=== PATIENT | female | born 1930 | race Caucasian/White ===

== ENCOUNTER → 2016-07-19 | Outpatient (CLI) | payer BC ==
[~2016-07-19] MED LIST: CLTP PO; DYZ PO; EVS60 PO; FSMD/70 PO; HRBLS PO; MULT-506 PO; POTA-327 PO; [UNRECOGNIZED DRUG - OTHER] PO
--- NOTE | 2016-07-20 10:58 | MAMMOGRAPHY REPORT ---
BILATERAL DIGITAL SCREENING MAMMOGRAM WITH CAD: 07/19/2016 CLINICAL HISTORY: Routine screening. Patient has no complaints. TECHNIQUE: Bilateral CC and MLO views were obtained. Current study was also evaluated with a Comput er Aided Detection (CAD) system. COMPARISON: Comparison is made to exams dated: 07/17/2015 mammogram, 06/22/2013 mammogram, 04/19/2011 ultrasound, 12/22/2011 mammogram, 06/19/2012 mammogram, and 07/15/2014 mammogram - [facility]. BREAST COMPOSITION: There are scattered areas of fibroglandular density in both breasts. FINDINGS: The parenchymal pattern is similar to prior exams. No developing mass, architectural dis tortion or cluster of suspicious microcalcifications is seen in either breast. IMPRESSION: ACR BI-RADS CATEGORY 2: BENIGN There is no mammographic evidence of malignancy. A 1 year screening mammogram is recommended. The p atient will receive written notification of the results. Approximately 10% of breast cancers are not detected with mammography. A negative mammographic repor t should not delay biopsy if a clinically suggestive mass is present. Margie Harris M.D. ay/:07/19/2016 16:06:05 Home Hospice Aide: Vandana RUVALCABA(Sherrill)(M), [facility] letter sent: Normal 1/2 BI-RADS Code: ACR BI-RADS Category 2: Benign
== END | disposition home or self-care (01) ==
LOC: C.MAMM 13:40
PROVIDERS: ATTEND Family Medicine
DX: Z12.31 Encounter for screening mammogram for malignant neoplasm of breast (principal)

== ENCOUNTER → 2017-08-24 | Outpatient (CLI) | payer BC ==
--- NOTE | 2017-08-24 15:14 | MAMMOGRAPHY REPORT ---
BILATERAL DIGITAL SCREENING MAMMOGRAM TOMOSYNTHESIS WITH CAD: 08/24/2017 CLINICAL HISTORY: Routine screening. Patient has no complaints. TECHNIQUE: Breast tomosynthesis in addition to standard 2D mammography was performed. Current study was also evaluated with a Computer Aided Detection (CAD) system. COMPARISON: Comparison is made to exams dated: 07/19/2016 mammogram, 07/17/2015 mammogram, 07/15/2014 ma mmogram, 06/22/2013 mammogram, 06/19/2012 mammogram, and 12/22/2011 mammogram - [facility]. BREAST COMPOSITION: The tissue of both breasts is heterogeneously dense, which may obscure small mas ses. FINDINGS: The parenchymal pattern is unchanged. No developing mass, architectural distortion or clus ter of suspicious microcalcifications is seen in either breast. IMPRESSION: ACR BI-RADS CATEGORY 2: BENIGN There is no mammographic evidence of malignancy. A 1 year screening mammogram is recommended. The pa tient will receive written notification of the results. Approximately 10% of breast cancers are not detected with mammography. A negative mammographic report should not delay biopsy if a clinically suggestive mass is present. Margie Harris M.D. ay/:08/24/2017 12:44:01 Mold Closer Helper: Akosua RUVALCABA(Sherrill)(Jesús), [facility] letter sent: Normal 1/2 BI-RADS Code: ACR BI-RADS Category 2: Benign
== END | disposition home or self-care (01) ==
LOC: C.MAMM 09:40
PROVIDERS: ATTEND Family Medicine
DX: Z12.31 Encounter for screening mammogram for malignant neoplasm of breast (principal)

== ENCOUNTER → 2017-08-24 | Outpatient (CLI) | payer BC ==
--- NOTE | 2017-08-24 11:04 | DIAGNOSTIC IMAGING REPORT ---
CHEST 2 VIEWS ROUTINE CLINICAL HISTORY: COUGH dyspnea COMPARISON STUDY: 12/18/2010 FINDINGS: Mild stable cardiomegaly. Moderate emphysematous change. Operative changes consistent with a partial left sixth rib resection posteriorly. Moderate diaphragmatic flattening. No focal infiltrate. IMPRESSION: Mild emphysematous change. Mild stable cardiomegaly. No acute process. The above report was generated using voice recognition software. It may contain grammatical, syntax or spelling errors. Electronically signed by: Rome Chawla M.D. 08/24/2017 11:03 AM Dictated Date/Time: 08/24/2017 11:02 AM
== END | disposition home or self-care (01) ==
LOC: C.RAD 10:24
PROVIDERS: ATTEND Family Medicine
DX: R05 Cough (principal)

== ENCOUNTER → 2017-08-25 | Outpatient (CLI) | payer BC ==
--- NOTE | 2017-08-25 10:09 | DIAGNOSTIC IMAGING REPORT ---
ADDENDUM Although difficult to visualize due to the noncontrast study. There is a possible 4.6 x 4.5 cm mass within the upper pole the right kidney. Therefore, renal ultrasound is recommended. These findings were discussed with the patient's physician, Dr. Hong at 2:51 PM on 08/25/2017. Electronically signed by: Franky Bae M.D. 08/25/2017 2:51 PM Dictated Date/Time: 08/25/2017 2:50 PM ORIGINAL REPORT ABDOMEN AND PELVIS CT WITH ORAL CONTRAST CT DOSE: 235.32 mGy.cm HISTORY: Right lower quadrant abdominal pain. Assess for abdominal mass. TECHNIQUE: Multiaxial CT images of the abdomen and pelvis were performed following the use of oral contrast. A dose lowering technique was utilized adhering to the principles of ALARA. COMPARISON STUDY: None. FINDINGS: Patchy ground glass densities within the base of the left lower lobe. A few linear scarlike density within the right lower lobe and a punctate calcified granuloma. No pneumoperitoneum. No pneumatosis. No suspicious lytic or blastic osseous lesions. Trace pericardial effusion. There is a 2 cm diverticulum at the second portion of the duodenum. The unenhanced liver, pancreas, spleen, and adrenal glands are unremarkable. No retroperitoneal lymphadenopathy. A 2.4 cm hypodense lesion within the upper pole of the left kidney. This is incompletely characterized on this noncontrast study but statistically represents a cyst. No left-sided hydronephrosis. Mildly enlarged and a ptotic right kidney which is slightly anteriorly displaced. There appears to be moderate right hydronephrosis to the level of the ureteropelvic junction and mild right perinephric fat stranding. The ureters difficult to visualize but does not appear distended. No ureteral calculi identified. The bladder is not well-distended but appears unremarkable. Small calcified fibroid within the uterus. There is pelvic floor collapse. No bowel wall thickening or obstruction. The appendix is not clearly visualized. IMPRESSION: 1. Moderate right hydronephrosis to the level of the ureteropelvic junction. The etiology of this obstruction is not identified on this study. This raises the possibility of an occult obstructing lesion or a congenital UPJ type obstruction. No renal or ureteral calculi identified. There is also right perinephric fat stranding which is likely due to the obstruction. Correlation with urinalysis is recommended to exclude a superimposed pyelonephritis. 2. The right kidney is mildly enlarged and ptotic in comparison to the left. 3. Trace pericardial effusion. 4. Additional findings as described above. Electronically signed by: Franky Bae M.D. 08/25/2017 10:07 AM Dictated Date/Time: 08/25/2017 9:56 AM
== END | disposition home or self-care (01) ==
LOC: C.CTS 09:24
PROVIDERS: ATTEND Family Medicine
DX: R19.00 Intra-abdominal and pelvic swelling, mass and lump, unspecified site (principal); N13.30 Unspecified hydronephrosis

== ENCOUNTER → 2017-08-31 | Outpatient (CLI) | payer BC ==
--- NOTE | 2017-08-31 13:53 | DIAGNOSTIC IMAGING REPORT ---
EXAMINATION: RENAL ULTRASOUND CLINICAL HISTORY: N13.30,R19.00 UPPER POLE RENAL MASS COMPARISON STUDY: CT scan dated 08/25/2017 FINDINGS: The right kidney measures 8.6 x 5.4 x 5.5 cm. The left kidney measures 10.1 x 4.9 x 5.0 cm. There is moderate right-sided hydronephrosis. No hydronephrosis is visualized on the left. The right kidney is malrotated. The upper pole was heterogeneous and may represent a 5.5 cm solid mass. There is a 23 mm left renal cyst. The bladder was decompressed the time of scanning. IMPRESSION : 1. Difficult study to interpret. The right kidney appears malrotated. There is a 5.5 cm upper pole right renal mass versus focal cortical hypertrophy. There are suspected hydronephrosis of the lower pole. A dedicated renal CT scan without and with contrast or dedicated renal MRI without and with contrast is recommended in follow-up Electronically signed by: Tal Segal M.D. 08/31/2017 1:52 PM Dictated Date/Time: 08/31/2017 1:45 PM
== END | disposition home or self-care (01) ==
LOC: C.ULTR 13:06
PROVIDERS: ATTEND Family Medicine
DX: N13.30 Unspecified hydronephrosis (principal); R19.00 Intra-abdominal and pelvic swelling, mass and lump, unspecified site

== ENCOUNTER 2018-10-31 10:22 | Inpatient (IN) ==
[2018-10-31] MEDS ORDERED: SODIUM CHLORIDE 0.9% 1000ML 1,000 ML IV SCH (11:00)
--- NOTE | 2018-10-31 11:05 | XRay Report ---
XR chest 1V portable CLINICAL HISTORY: Weakness. Confusion. COMPARISON STUDY: Chest CT December 31, 2009. Chest radiograph October 10, 2018. FINDINGS: There are suspected trace bilateral pleural effusions. There is no pneumothorax. Cardiomedi astinal silhouette is stable. There is mild left basilar opacity. Pulmonary vascularity is normal. No te is made of a 4.3 cm left apical density which favors a thin-walled cavitary lesion. IMPRESSION: 1. 4.3 cm left apical density which favors a thin-walled cavitary lesion. A follow-up nonemergent [facility] CT is recommended. 2. Suspected trace bilateral pleural effusions with mild left basilar opacity. Electronically signed by: Thierno Mark M.D. 10/31/2018 11:04 AM
--- NOTE | 2018-10-31 11:33 | CT Scan Report ---
CT SCAN OF THE BRAIN WITHOUT IV CONTRAST CLINICAL HISTORY: Fall. COMPARISON STUDY: CT of the brain dated 10/10/2018. TECHNIQUE: Unenhanced axial CT scan of the brain is performed from the vertex to the skull base. A do se lowering technique was utilized adhering to the principles of ALARA. FINDINGS: Brain parenchyma: There are age-related involutional changes noting moderate subcortical and periven tricular microangiopathic change. Left temporal lobe encephalomalacia is unchanged from previous. The re is no hemorrhage, mass effect, or evidence of acute territorial ischemia by CT criteria. Cueto-whit e matter differentiation is preserved. No extra-axial fluid collection is seen. Ventricles, sulci, cisterns: Prominent secondary to involutional change. Intracranial vasculature: There is mild atherosclerotic calcification of the cavernous carotid and ve rtebral arteries. Calvarium: The skeletal structures are osteopenic. No depressed calvarial fracture is seen. There is postoperative change from left frontotemporal craniotomy/craniectomy. Sinuses and mastoids: The visualized paranasal sinuses are clear. The mastoid air cells are well pneu matized. Orbits: The bony orbits are grossly intact. There are bilateral ocular lens implants. IMPRESSION: Chronic and postoperative changes as above with no hemorrhage, mass effect, or evidence o f acute territorial ischemia by CT criteria. Electronically signed by: Sonu Mcfadden M.D. 10/31/2018 11:32 AM
[2018-10-31 11:36] LABS: Alanine Aminotransferase 9 U/L (12-78); Albumin Level 2.1 gm/dl (3.4-5.0); Aspartate Aminotransferase 13 U/L (15-37); BUN Creatinine Ratio 14.5 (10-20); Blood Urea Nitrogen 25 mg/dl (7-18); Calcium 9.2 mg/dl (8.5-10.1); Carbon Dioxide 27 mmol/L (21-32); Chloride 99 mmol/L (98-107); Est GFR (Non-African American) 25.9; Glucose 108 mg/dl (70-99); Magnesium 2.2 mg/dl (1.8-2.4); Potassium 4.3 mmol/L (3.5-5.1); Sodium 135 mmol/L (136-145)
[2018-10-31 11:47] LABS: Albumin Globulin Ratio 0.7 (0.9-2); Alkaline Phosphatase 247 U/L (45-117); Bilirubin,Total 0.7 mg/dl (0.2-1); Globulin 3.2 gm/dl (2.5-4.0); Total Protein 5.3 gm/dl (6.4-8.2); Troponin I < 0.015 ng/ml (0-0.045)
[2018-10-31 11:59] LABS: Hematocrit (blood only) 28.4 % (37-47); Mean Corpuscular Hgb Conc 31.7 g/dL (32-36); Mean Platelet Volume 9.1 fL (7.4-10.4); Platelet Count 323 K/uL (130-400); RDW Coefficient of Variation 15.5 % (11.5-14.5); RDW Standard Deviation 46.8 fL (36.4-46.3); Red Blood Count 3.42 M/uL (4.2-5.4); White Blood Count 34.38 K/uL (4.8-10.8)
[2018-10-31 12:08] LABS: Basophils # (auto) 0.01 K/uL (0-0.2); Echinocytes 1+; Immature Granulocytes # (auto) 0.28 K/uL (0.00-0.02); Immature Granulocytes % (auto) 0.8 %; Lymphocytes # (auto) 2.58 K/uL (1.2-3.4); Lymphocytes % (auto) 7.5 %; Microcytosis Present; Monocytes % (auto) 4.9 %; Neutrophils # (auto) 29.81 K/uL (1.4-6.5); Neutrophils % (auto) 86.8 %
--- NOTE | 2018-10-31 12:10 | CT Scan Report ---
CT OF THE CHEST WITHOUT IV CONTRAST CLINICAL HISTORY: cavitary lesion, WBC 30. COMPARISON STUDY: Chest CT December 31, 2009. Chest radiograph performed earlier today. TECHNIQUE: Axial images of the chest were obtained without IV contrast. Images were reviewed in the axial, sagittal, and coronal planes. IV contrast was not administered for this examination. Automat ed exposure control was utilized for the study. A dose lowering technique was utilized adhering to t he principles of ALARA. FINDINGS: No enlarged axillary, mediastinal or hilar lymph nodes are present. The heart is mildly en larged. There is moderate coronary artery calcification. There is no pericardial effusion. No pneumot horax or pleural effusion is noted. There is mild airspace opacity within the right upper lobe on axi al image 73 of 291. The central airways are patent. Mild mucus plugging within the right lower lobe a nd right middle lobes is noted with minimal airspace opacity. Note is made of a 4.9 x 3.2 cm left api guy cavitary opacity. The wall is mildly thickened, measuring up to 6 mm in thickness. Underlying oss eous structures are intact. Extrapleural fat is unremarkable. A cyst within the upper pole of the lef t kidney is noted. The CT of the abdomen and pelvis will be reported separately. IMPRESSION: 1. 4.9 x 3.2 cm left apical subpleural cavitary focus. This is indeterminate. Given findings on chest radiograph of October 10, 2018, this may reflect a resolving infectious process. However, a neoplasm cou ld appear similar and a follow-up chest CT in one month is recommended. 2. Minimal airspace opacity within the right upper lobe which favors an infectious process. Mild mucu s plugging within the right middle and lower lobes. 3. No thoracic lymphadenopathy. Electronically signed by: Thierno Mark M.D. 10/31/2018 12:08 PM
--- NOTE | 2018-10-31 12:13 | CT Scan Report ---
CT SCAN OF THE ABDOMEN AND PELVIS WITHOUT CONTRAST CLINICAL HISTORY: Weakness. Elevated white count. COMPARISON STUDY: August 2017 TECHNIQUE: CT scan of the abdomen and pelvis was performed from the lung bases to the proximal femurs . Images are reviewed in the axial, sagittal, and coronal planes. IV contrast was not administered fo r this examination. A dose lowering technique was utilized adhering to the principles of ALARA. CT DOSE: FINDINGS: Lower chest: The heart is normal in size and configuration, without pericardial effusion. The lung ba ses and pleural spaces are clear. Liver: The unenhanced liver is normal in size, contour, and attenuation. There is no intrahepatic benji iary ductal dilatation. Gallbladder: Mildly distended. No calculi are visualized on CT scanning. Spleen: Normal in size and attenuation. Pancreas: Unremarkable. Adrenal glands: Unremarkable. Kidneys: There is a 10 cm right renal mass. A neoplasm is the diagnosis of exclusion. Further workup is indicated. There is persistent dilatation of the lower pole right renal collecting system. There i s a 27 mm upper pole left renal cyst. Bowel: There are no transition zones to indicate bowel obstruction. There is no evidence of acute div erticulitis. There is no evidence of acute appendicitis. Peritoneum: There is no intraperitoneal free air or abdominal ascites. Vasculature: The abdominal aorta is normal in course and caliber. Adenopathy: None. Pelvic viscera: There are uterine calcifications, likely secondary to calcified fibroids. There is mi ld edema within the presacral space. There is a possible 9 mm bladder lesion at the level of the righ t ureterovesical junction. Skeletal structures: There is a L2 compression fracture with 8 mm of retropulsion. This appears acute . There is secondary spinal canal narrowing. IMPRESSION: 1. 10 cm infiltrative right renal mass. A transitional cell carcinoma is favored over renal cell carc inoma. Further workup is indicated 2. Possible 9 mm bladder mass at the level of the right uterovesical junction 3. Acute L2 compression fracture with 8 mm of retropulsion, and secondary spinal canal narrowing 4. No evidence of bowel structure. No evidence of free air. Electronically signed by: Tal Segal M.D. 10/31/2018 12:11 PM
[2018-10-31] MEDS ORDERED: PIPERACILLIN/TAZOBACTAM 4.5 GM/120 ML BAG IV ONE (12:46)
[2018-10-31] MEDS ORDERED: VANCOMYCIN CONSULT ACTIVE PRN ×2 (12:46→14:46)
[2018-10-31] MEDS ORDERED: PIPERACILL/TAZOBAC CONSULT ACTIVE PRN ×2 (12:46→14:46)
[2018-10-31] MEDS ORDERED: VANCOMYCIN HCL 1,250 MG in SODIUM CHLORIDE 0.9% 500 ML IV ONE (12:46)
[2018-10-31] MEDS ORDERED: SODIUM CHLORIDE 0.9% 1000ML 1,000 ML IV ONE (12:48)
[2018-10-31 13:19] LABS: Appearance Urine Cloudy (Clear); Bacteria Urine Automated 2+ (Negative); Bilirubin Urine Negative (Negative); Blood Urine Negative (Negative); Cast Urine Automated 0 /lpf (0-5); Color Urine Dark Yellow; Glucose Urine UA Negative (Negative); Ketones Urine Trace (Negative); Leukocyte Esterase Urine Trace (Negative); Nitrite Urine Negative (Negative); Protein Urine Trace (Negative); RBC Urine Automated 0-4 /hpf (0-4); Specific Gravity Urine 1.014 (1.000-1.030); Urobilinogen Urine Negative (Negative)
--- NOTE | 2018-10-31 13:20 | History & Physical Report ---
Date of Service October 31, 2018 Assessment & Plan (1) PNA (pneumonia): Possible pneumonitis Mucous plugging noted on CT Vanco/zosyn given elevated WBC, although elevated WBC may be related to cancer Monitor (2) Anemia: Hb 9.0 Labs done at [facility] last week with Hb 9.6 Uncertain if this is lab difference or bleeding or related to onc status, no signs of bruising or bleeding Hemoccult pending MCV is WNL No recent labs in our system to determine baseline (3) Falls frequently: Dx with UTI as outpt, cx reports as Lactobacillus No abx listed on med rec PT/OT pending (4) Weakness: Infectious vs deconditioning vs related to cancer status PT/OT pending (5) Lung mass: It is unclear if this is a prior known issue or what further care pt/family wish to pursue Does not appear to have been active with heme/onc (6) Renal mass: 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 as noted on CTAP read It is unclear if this is a prior known issue or what further care pt/family wish to pursue Does not appear to have been active with heme/onc (7) Bladder mass: As noted on CTAP It is unclear if this is a prior known issue or what further care pt/family wish to pursue Does not appear to have been active with heme/onc (8) Compression fracture: Listed on dx from [facility] Monitor Denies current pain (9) DVT prophylaxis: SCDs Holding on rx given above Hb issues History of Present Illness Primary Care Provider: Reginaldo Romero MD 88 y/o F who was sent to the ED from [facility] for several recent falls and increased stools per the ED physician. Pt cannot tell me any hx of her recent health. When asked why she was brought here, she responds that she does not know. Pt denies fever, SOB, chest pain, abd pain, n/v/c/d, LE pain or swelling. She is uncertain if she ate or took any medications today. A call from the ED physician to pt's daughter was not answered and has not yet been returned. Allergies Allergy/AdvReac Type Severity Reaction Status Date / Time No Known Allergies Allergy Unknown Verified 10/31/18 11:42 Home Medications Home Medications Medication Instructions Recorded Confirmed Type calcium carbonate-vitamin D3 1 tab PO DAILY 10/10/18 10/31/18 History [Oyster Shell Calcium-Vit D3] lidocaine [Lidoderm] 1 patch TOP DAILY PRN #1 ea 10/10/18 10/31/18 Rx acetaminophen [Tylenol] 325 mg PO Q4H PRN 10/31/18 10/31/18 History tramadol 50 mg PO Q6H PRN 10/31/18 10/31/18 History Past Med/Surg History Medical History Falls frequently Unknown family medical history Surgical History No pertinent past surgical history Family History Other Unknown family medical history Social History Preferred Language: R[place] Communication Ability: Effective Current Living Situation: [facility] Current Living Situation Comment: [place] Feels Safe at Home: Yes Smoking Status: Unknown if ever smoked Review of Systems Review of Systems: Pertinent positives and negatives reviewed in HPI--all others negative Physical Exam Constitutional: WD/WN, vitals as above Eyes: normal visual pimentel by confrontation and + anicteric sclerae Neck: normal visual inspection and trachea midline Respiratory: normal respiratory effort, lungs clear to auscultation Cardiovascular: Rate/Rhythm: regular rate and regular rhythm Gastrointestinal (Abdomen): Inspection/Auscultation: abdomen not distended Percussion/Palpation: abdomen soft; abdomen nontender Musculoskeletal: Head/Neck/Chest: normocephalic and head atraumatic LE edema, peripheral pulses intact Skin: no rashes, warm and dry Neurologic: awake and + confused Speech / Cognition: normal speech Psychiatric: Orientation: oriented to person and cooperative; + not oriented to place and + not oriented to time Apperance: not disheveled Eye Contact: good eye contact Affect: + anxious affect Results & Data Vital Signs (Past 12 Hours) Vital Signs Temp Pulse Resp BP Pulse Ox 10/31/18 11:40 70 13 10/31/18 11:32 75 22 10/31/18 11:30 75 18 122/58 L 10/31/18 11:29 95 H 16 10/31/18 11:12 97 10/31/18 11:10 77 21 100 10/31/18 11:01 80 22 120/64 100 10/31/18 11:00 77 17 100 10/31/18 10:51 79 18 99 10/31/18 10:40 76 18 99 10/31/18 10:34 77 17 98 10/31/18 10:31 77 16 122/64 98 10/31/18 10:15 36.6 C 77 17 122/64 98 Diagnostic Findings CXR: 4.3cm apical density CT chest: 4.3 x3.2cm apical density, mucous plugging CT head: neg for acute CTAP: 10cm R renal mass, 9 cm bladder mass, L2 compression fracture Code Status & VTE Plan Code Status Unable to discuss with pt, no POLST or other advanced directive on chart Awaiting return call from daughter VTE Prophylaxis Plan VTE Prophylaxis will be ordered: Yes PG Care Time/CCT Total # of Minutes Spent Total Time Spent with Patient: Total time spent is greater than 50% in coordination of care (as documented) at patient's floor/unit and/or counseling patient: (1) PNA (pneumonia) Laterality: unspecified laterality Lung location: unspecified part of lung Pneumonia type: due to unspecified organism Qualified Code(s): J18.9 - Pneumonia, unspecified organism
[2018-10-31] MEDS ORDERED: TRAMADOL HCL 50 MG TABLET PO PRN (14:46)
[2018-10-31] MEDS ORDERED: LIDOCAINE 5% 1 PATCH TD PRN (14:46)
[2018-10-31] MEDS ORDERED: ONDANSETRON INJ 2 MG/ML 2 ML VIAL IV PRN (14:46)
[2018-10-31] MEDS ORDERED: ACETAMINOPHEN 325 MG TAB PO PRN ×2 (14:46)
[2018-10-31] MEDS ORDERED: MAGNESIUM HYDROXIDE SUSP 30 ML UDC PO PRN (14:46)
[2018-10-31] MEDS: SODIUM CHLORIDE 0.9% 1000ML 1,000 ML IV SCH (15:00)
[2018-10-31] MEDS ORDERED: PNEUMOCOCCAL POLYSACCHARIDES 25 MCG/0.5 ML VIAL/SYR IM ONE (17:00)
[2018-10-31] MEDS ORDERED: PNEUMOCOCCAL ADMINISTRATION CHARGE ONE (17:00)
--- NOTE | 2018-10-31 17:52 | Emergency Department Note ---
Entered by Nereida Joiner acting as a scribe for Thomas Duran MD History of Present Illness General Chief complaint: Illness Stated complaint: Fall. Possible dehydration Time Seen by Provider: 10/31/18 10:45 Source: patient Mode of arrival: EMS Limitations: altered mental status History of Present Illness Onset (ago): day(s) (today) Location: head (global), upper extremity (global) and lower extremity (global) Pain Consistency: + other (worsening) Quality: + other (illness, dehydration, high white blood cell count) Associated symptoms: + other (The patient denies urinary symptoms, leg pain, and abdominal pain. ); no chest pain, no nausea/vomiting and no shortness of breath The HPI is limited secondary to patient weakness. The patient is an 88 white female w/ PMHx falls and DVT prophylaxis who presents to the ED via EMS w/ CC of worsening illness beginning today. The patient presents from [facility]. Per EMS, staff at [facility] states that the patient is dehydrated with a high white blood cell count. Per EMS, the patient complains of constipation but has had multiple bowel movements today. Per nursing staff, the patient is here for past falls. T he patient denies nausea, vomiting, urinary symptoms, chest pain, abdominal pain, leg pain, and shortness of breath. The patient was seen by Dr. Marsh on 10/14/2018. Home Medications Home Medications Medication Instructions Recorded Confirmed Type calcium carbonate-vitamin D3 1 tab PO DAILY 10/10/18 10/31/18 History [Oyster Shell Calcium-Vit D3] lidocaine [Lidoderm] 1 patch TOP DAILY PRN #1 ea 10/10/18 10/31/18 Rx acetaminophen [Tylenol] 325 mg PO Q4H PRN 10/31/18 10/31/18 History tramadol 50 mg PO Q6H PRN 10/31/18 10/31/18 History Allergies Allergy/AdvReac Type Severity Reaction Status Date / Time No Known Allergies Allergy Unknown Verified 10/31/18 11:42 Past Med/Surg History Medical History Falls frequently Unknown family medical history Surgical History No pertinent past surgical history Family History Other Unknown family medical history Social History Preferred Language: Upper Sorbian Communication Ability: Effective Beliefs That Will Affect Care: None Current Living Situation: Halfway Current Living Situation Comment: [place] Feels Safe at Home: Yes Smoking Status: Unknown if ever smoked Review of Systems See HPI for pertinent positives & negatives. Other (The HPI is limited secondary to patient weakness. ) Physical Exam Vital Signs Vital Signs - 24 hr 10/31/18 10:15 10/31/18 10:31 10/31/18 10:34 Temperature 36.6 C Temperature Source Oral Sepsis Recent Fever Within 48 Hours No Sepsis New/Unexplained Change in Mental Status No Sepsis Action Taken by Nursing No Action Required Pulse Rate 77 77 77 Pulse Rate from SpO2 Sensor 77 77 Respiratory Rate 17 16 17 Respiratory Effort / Characteristics Non-Labored Respiratory Depth Normal Respiratory Pattern Regular Blood Pressure 122/64 122/64 Blood Pressure Mean 83 83 Blood Pressure Position Sitting Pulse Oximetry 98 98 98 Oxygen Delivery Method Room Air 10/31/18 10:40 10/31/18 10:51 10/31/18 11:00 Temperature Temperature Source Sepsis Recent Fever Within 48 Hours Sepsis New/Unexplained Change in Mental Status Sepsis Action Taken by Nursing Pulse Rate 76 79 77 Pulse Rate from SpO2 Sensor 76 79 77 Respiratory Rate 18 18 17 Respiratory Effort / Characteristics Respiratory Depth Respiratory Pattern Blood Pressure Blood Pressure Mean Blood Pressure Position Pulse Oximetry 99 99 100 Oxygen Delivery Method 10/31/18 11:01 10/31/18 11:10 10/31/18 11:12 Temperature Temperature Source Sepsis Recent Fever Within 48 Hours Sepsis New/Unexplained Change in Mental Status Sepsis Action Taken by Nursing Pulse Rate 80 77 Pulse Rate from SpO2 Sensor 81 77 Respiratory Rate 22 21 Respiratory Effort / Characteristics Respiratory Depth Respiratory Pattern Blood Pressure 120/64 Blood Pressure Mean 82 Blood Pressure Position Pulse Oximetry 100 100 97 Oxygen Delivery Method Room Air 10/31/18 11:29 10/31/18 11:30 10/31/18 11:32 Temperature Temperature Source Sepsis Recent Fever Within 48 Hours Sepsis New/Unexplained Change in Mental Status Sepsis Action Taken by Nursing Pulse Rate 95 H 75 75 Pulse Rate from SpO2 Sensor Respiratory Rate 16 18 22 Respiratory Effort / Characteristics Respiratory Depth Respiratory Pattern Blood Pressure 122/58 L Blood Pressure Mean 79 Blood Pressure Position Pulse Oximetry Oxygen Delivery Method 10/31/18 11:40 10/31/18 11:59 10/31/18 12:01 Temperature Temperature Source Sepsis Recent Fever Within 48 Hours Sepsis New/Unexplained Change in Mental Status Sepsis Action Taken by Nursing Pulse Rate 70 71 75 Pulse Rate from SpO2 Sensor Respiratory Rate 13 12 21 Respiratory Effort / Characteristics Respiratory Depth Respiratory Pattern Blood Pressure Blood Pressure Mean Blood Pressure Position Pulse Oximetry Oxygen Delivery Method 10/31/18 12:10 10/31/18 12:12 10/31/18 12:20 Temperature Temperature Source Sepsis Recent Fever Within 48 Hours Sepsis New/Unexplained Change in Mental Status Sepsis Action Taken by Nursing Pulse Rate 72 72 73 Pulse Rate from SpO2 Sensor 72 73 Respiratory Rate 20 15 16 Respiratory Effort / Characteristics Respiratory Depth Respiratory Pattern Blood Pressure 133/64 Blood Pressure Mean 87 Blood Pressure Position Pulse Oximetry 95 98 Oxygen Delivery Method 10/31/18 12:31 10/31/18 12:40 10/31/18 12:50 Temperature Temperature Source Sepsis Recent Fever Within 48 Hours Sepsis New/Unexplained Change in Mental Status Sepsis Action Taken by Nursing Pulse Rate 78 85 78 Pulse Rate from SpO2 Sensor 75 Respiratory Rate 18 18 20 Respiratory Effort / Characteristics Respiratory Depth Respiratory Pattern Blood Pressure 129/60 Blood Pressure Mean 83 Blood Pressure Position Pulse Oximetry 99 Oxygen Delivery Method 10/31/18 13:01 Temperature Temperature Source Sepsis Recent Fever Within 48 Hours Sepsis New/Unexplained Change in Mental Status Sepsis Action Taken by Nursing Pulse Rate 68 Pulse Rate from SpO2 Sensor Respiratory Rate 22 Respiratory Effort / Characteristics Respiratory Depth Respiratory Pattern Blood Pressure 153/71 H Blood Pressure Mean 98 Blood Pressure Position Pulse Oximetry Oxygen Delivery Method GENERAL: Well nourished, non-toxic, tachypenic. EYE EXAM: Normal conjunctiva. PERRL, no anisocoria and EOM's grossly intact w/o pain. OROPHARYNX: Dry mucus membranes. Grossly normal dentition. NECK: Supple, no nuchal rigidity, no adenopathy, non-tender. no signs of meningismus. LUNGS: Clear to auscultation. Normal chest wall mechanics. HEART: NSR, no MRG. ABDOMEN: Abdomen soft, non-tender, normo-active bowel sounds, no masses, no rebound or guarding. BACK: No CVA TTP. SKIN: No rashes and no bruising. UPPER EXTREMITIES: Upper extremities are grossly normal. LOWER EXTREMITIES: No pitting edema. No calf pain. NEURO EXAM: A&O x3, cranial nerves II-XII grossly intact, normal speech, moves all 4 extremities on command w/o issue. GCS 14 Course 1105: Past medical records reviewed. The patient was evaluated in room C03. A complete history and physical examination was performed. 1235: I attempted to call the patient's family (Maty [phone]). There was no response or callback. 1246: I [facility] the [facility]. She will evaluate the patient for further management. Consultations Consultation #1: [id number]: I reviewed the patient's case [facility]. She will evaluate the patient for further management. Time: 12:46 Administered Medications Sodium Chloride (Nss 1000ml) 1,000 mls @ 80 mls/hr IV .[id number] MAGALIS Stop: 11/30/18 14:45 Last Admin: 10/31/18 15:00 Dose: 80 mls/hr Documented by: [id number] Discontinued Medications Sodium Chloride (Nss 1000ml) 1,000 mls @ 999 mls/hr IV .Q1H1M MAGALIS Stop: 10/31/18 12:00 Last Infusion: 10/31/18 12:24 Dose: 0 mls/hr Documented by: [id number] Admin: 10/31/18 11:16 Dose: 999 mls/hr Documented by: [id number] Piperacillin Sod/Tazobactam Sod (Zosyn) 4.5 gm in 120 mls @ 240 mls/hr IV NOW ONE Stop: 10/31/18 13:15 Last Infusion: 10/31/18 15:04 Dose: 0 mls/hr Documented by: [id number] Admin: 10/31/18 13:52 Dose: 240 mls/hr Documented by: [id number] Sodium Chloride (Nss 1000ml) 1,000 mls @ 999 mls/hr IV .Q1H1M ONE Stop: 10/31/18 13:48 Last Infusion: 10/31/18 15:04 Dose: 0 mls/hr Documented by: [id number] Admin: 10/31/18 13:52 Dose: 999 mls/hr Documented by: [id number] Vancomycin HCl 1,250 mg/ (Sodium Chloride) 525 mls @ 200 mls/hr IV NOW ONE; Protocol Stop: 10/31/18 15:23 Last Admin: 10/31/18 14:46 Dose: 200 mls/hr Documented by: [id number] Medical Decision Making Differential Diagnosis Differential diagnoses: Metabolic, infection, hypo/hyperglycemia, electrolyte abnormalities, cardiac sources, intracerebral event, toxicologic, neurologic, as well as others were entertained. Medical Records Attestation: I reviewed the patient's medical records. Home Medications Current Medication List: was personally reviewed by me Laboratory Data Attestation: I reviewed the patient's lab results. Result diagrams: 10/31/18 11:36 10/31/18 11:11 Lab Results 10/31/18 10/31/18 10/31/18 Range/Units 11:11 11:11 11:36 WBC 34.38 H* (4.8-10.8) K/uL RBC 3.42 L (4.2-5.4) M/uL Hgb 9.0 L (12.0-16.0) g/dL Hct 28.4 L (37-47) % MCV 83.0 (80-100) fL MCH 26.3 (25-34) pg MCHC 31.7 L (32-36) g/dL RDW Std Deviation 46.8 H (36.4-46.3) fL RDW Coeff of Gely 15.5 H (11.5-14.5) % Plt Count 323 (130-400) K/uL MPV 9.1 (7.4-10.4) fL Immature Gran % (Auto) 0.8 % Neut % (Auto) 86.8 % Lymph % (Auto) 7.5 % [place] % (Auto) 4.9 % Eos % (Auto) 0.0 % Baso % (Auto) 0.0 % Immature Gran # (Auto) 0.28 H (0.00-0.02) K/uL Neut # (Auto) 29.81 H (1.4-6.5) K/uL Lymph # (Auto) 2.58 (1.2-3.4) K/uL [place] # (Auto) 1.70 H (0.11-0.59) K/uL Eos # (Auto) 0.00 (0-0.5) K/uL Baso # (Auto) 0.01 (0-0.2) K/uL Microcytosis Present Echinocytes 1+ Sodium 135 L (136-145) mmol/L Potassium 4.3 (3.5-5.1) mmol/L Chloride 99 (98-107) mmol/L Carbon Dioxide 27 (21-32) mmol/L Anion Gap 9.0 (3-11) BUN 25 H (7-18) mg/dl Creatinine 1.74 H (0.6-1.2) mg/dl Est Cr Clr Drug Dosing Not Reportable Est GFR ( Amer) 30.0 Est GFR (Non-Af Amer) 25.9 BUN/Creatinine Ratio 14.5 (10-20) Glucose 108 H (70-99) mg/dl Calcium 9.2 (8.5-10.1) mg/dl Magnesium 2.2 (1.8-2.4) mg/dl Total Bilirubin 0.7 (0.2-1) mg/dl AST 13 L (15-37) U/L ALT 9 L (12-78) U/L Alkaline Phosphatase 247 H (45-117) U/L Troponin I < 0.015 (0-0.045) ng/ml Total Protein 5.3 L (6.4-8.2) gm/dl Albumin 2.1 L (3.4-5.0) gm/dl Globulin 3.2 (2.5-4.0) gm/dl Albumin/Globulin Ratio 0.7 L (0.9-2) TSH 2.250 (0.300-4.500) uIu/ml Urine Color Urine Appearance (Clear) Urine pH (4.5-7.5) Ur Specific Mora (1.000-1.030) Urine Protein (Negative) Urine Glucose (UA) (Negative) Urine Ketones (Negative) Urine Blood (Negative) Urine Nitrite (Negative) Urine Bilirubin (Negative) Urine Urobilinogen (Negative) Ur Leukocyte Esterase (Negative) Urine WBC (Auto) (0-5) /hpf Urine RBC (Auto) (0-4) /hpf U Hyaline Cast (Auto) (0-5) /lpf U Epithel Cells (Auto) (0-5) /lpf Urine Bacteria (Auto) (Negative) Stl C. diff Tox B Gene (Neg) 10/31/18 10/31/18 Range/Units 12:56 12:56 WBC (4.8-10.8) K/uL RBC (4.2-5.4) M/uL Hgb (12.0-16.0) g/dL Hct (37-47) % MCV (80-100) fL MCH (25-34) pg MCHC (32-36) g/dL RDW Std Deviation (36.4-46.3) fL RDW Coeff of Gely (11.5-14.5) % Plt Count (130-400) K/uL MPV (7.4-10.4) fL Immature Gran % (Auto) % Neut % (Auto) % Lymph % (Auto) % [place] % (Auto) % Eos % (Auto) % Baso % (Auto) % Immature Gran # (Auto) (0.00-0.02) K/uL Neut # (Auto) (1.4-6.5) K/uL Lymph # (Auto) (1.2-3.4) K/uL [place] # (Auto) (0.11-0.59) K/uL Eos # (Auto) (0-0.5) K/uL Baso # (Auto) (0-0.2) K/uL Microcytosis Echinocytes Sodium (136-145) mmol/L Potassium (3.5-5.1) mmol/L Chloride (98-107) mmol/L Carbon Dioxide (21-32) mmol/L Anion Gap (3-11) BUN (7-18) mg/dl Creatinine (0.6-1.2) mg/dl Est Cr Clr Drug Dosing Est GFR ( Amer) Est GFR (Non-Af Amer) BUN/Creatinine Ratio (10-20) Glucose (70-99) mg/dl Calcium (8.5-10.1) mg/dl Magnesium (1.8-2.4) mg/dl Total Bilirubin (0.2-1) mg/dl AST (15-37) U/L ALT (12-78) U/L Alkaline Phosphatase (45-117) U/L Troponin I (0-0.045) ng/ml Total Protein (6.4-8.2) gm/dl Albumin (3.4-5.0) gm/dl Globulin (2.5-4.0) gm/dl Albumin/Globulin Ratio (0.9-2) TSH (0.300-4.500) uIu/ml Urine Color Dark Yellow Urine Appearance Cloudy A (Clear) Urine pH 5.0 (4.5-7.5) Ur Specific [place] 1.014 (1.000-1.030) Urine Protein Trace H (Negative) Urine Glucose (UA) Negative (Negative) Urine Ketones Trace H (Negative) Urine Blood Negative (Negative) Urine Nitrite Negative (Negative) Urine Bilirubin Negative (Negative) Urine Urobilinogen Negative (Negative) Ur Leukocyte Esterase Trace H (Negative) Urine WBC (Auto) 1-5 (0-5) /hpf Urine RBC (Auto) 0-4 (0-4) /hpf U Hyaline Cast (Auto) 0 (0-5) /lpf U Epithel Cells (Auto) 5-10 H (0-5) /lpf Urine Bacteria (Auto) 2+ H (Negative) Stl C. diff Tox B Gene Negative Cdiff Gene (Neg) Imaging Data Radiologist's Impression: Radiology results as stated below per my review and the radiologist's interpretation: CT OF THE CHEST WITHOUT IV CONTRAST CLINICAL HISTORY: cavitary lesion, WBC 30. COMPARISON STUDY: Chest CT December 31, 2009. Chest radiograph performed earlier today. TECHNIQUE: Axial images of the chest were obtained without IV contrast. Images were reviewed in the axial, sagittal, and coronal planes. IV contrast was not administered for this examination. Automated exposure control was utilized for the study. A dose lowering technique was utilized adhering to the principles of ALARA. FINDINGS: No enlarged axillary, mediastinal or hilar lymph nodes are present. The heart is mildly enlarged. There is moderate coronary artery calcification. There is no pericardial effusion. No pneumothorax or pleural effusion is noted. There is mild airspace opacity within the right upper lobe on axial image 73 of 291. The central airways are patent. Mild mucus plugging within the right lower lobe and right middle lobes is noted with minimal airspace opacity. Note is made of a 4.9 x 3.2 cm left apical cavitary opacity. The wall is mildly thickened, measuring up to 6 mm in thickness. Underlying osseous structures are intact. Extrapleural fat is unremarkable. A cyst within the upper pole of the left kidney is noted. The CT of the abdomen and pelvis will be reported separately. IMPRESSION: 1. 4.9 x 3.2 cm left apical subpleural cavitary focus. This is indeterminate. Given findings on chest radiograph of October 10, 2018, this may reflect a resolving infectious process. However, a neoplasm could appear similar and a follow-up chest CT in one month is recommended. 2. Minimal airspace opacity within the right upper lobe which favors an infectious process. Mild mucus plugging within the right middle and lower lobes. 3. No thoracic lymphadenopathy. Electronically signed by: Thierno Mark M.D. 10/31/2018 12:08 PM Dictated: 10/31/18 1158 Transcribed: 10/31/[address] SCAN OF THE ABDOMEN AND PELVIS WITHOUT CONTRAST CLINICAL HISTORY: Weakness. Elevated white count. COMPARISON STUDY: August 2017 TECHNIQUE: CT scan of the abdomen and pelvis was performed from the lung bases to the proximal femurs. Images are reviewed in the axial, sagittal, and coronal planes. IV contrast was not administered for this examination. A dose lowering technique was utilized adhering to the principles of ALARA. CT DOSE: FINDINGS: Lower chest: The heart is normal in size and configuration, without pericardial effusion. The lung bases and pleural spaces are clear. Liver: The unenhanced liver is normal in size, contour, and attenuation. There is no intrahepatic biliary ductal dilatation. Gallbladder: Mildly distended. No calculi are visualized on CT scanning. Spleen: Normal in size and attenuation. Pancreas: Unremarkable. Adrenal glands: Unremarkable. Kidneys: There is a 10 cm right renal mass. A neoplasm is the diagnosis of exc lusion. Further workup is indicated. There is persistent dilatation of the lower pole right renal collecting system. There is a 27 mm upper pole left renal cyst. Bowel: There are no transition zones to indicate bowel obstruction. There is no evidence of acute diverticulitis. There is no evidence of acute appendicitis. Peritoneum: There is no intraperitoneal free air or abdominal ascites. Vasculature: The abdominal aorta is normal in course and caliber. Adenopathy: None. Pelvic viscera: There are uterine calcifications, likely secondary to calcified fibroids. There is mild edema within the presacral space. There is a possible 9 mm bladder lesion at the level of the right ureterovesical junction. Skeletal structures: There is a L2 compression fracture with 8 mm of retropulsion. This appears acute. There is secondary spinal canal narrowing. IMPRESSION: 1. 10 cm infiltrative right renal mass. A transitional cell carcinoma is favored over renal cell carcinoma. Further workup is indicated 2. Possible 9 mm bladder mass at the level of the right uterovesical junction 3. Acute L2 compression fracture with 8 mm of retropulsion, and secondary spinal canal narrowing 4. No evidence of bowel structure. No evidence of free air. Electronically signed by: Tal Segal M.D. 10/31/2018 12:11 PM Dictated: 10/31/18 1159 Transcribed: 10/31/18 1159 XR chest 1V portable CLINICAL HISTORY: Weakness. Confusion. COMPARISON STUDY: Chest CT December 31, 2009. Chest radiograph October 10, 2018. FINDINGS: There are suspected trace bilateral pleural effusions. There is no pneumothorax. Cardiomediastinal silhouette is stable. There is mild left basilar opacity. Pulmonary vascularity is normal. Note is made of a 4.3 cm left apical density which favors a thin-walled cavitary lesion. IMPRESSION: 1. 4.3 cm left apical density which favors a thin-walled cavitary lesion. A follow-up nonemergent chest CT is recommended. 2. Suspected trace bilateral pleural effusions with mild left basilar opacity. Electronically signed by: Thierno Mark M.D. 10/31/2018 11:04 AM Dictated: 10/31/18 1101 Transcribed: 10/31/[address] SCAN OF THE BRAIN WITHOUT IV CONTRAST CLINICAL HISTORY: Fall. COMPARISON STUDY: CT of the brain dated 10/10/2018. TECHNIQUE: Unenhanced axial CT scan of the brain is performed from the vertex to the skull base. A dose lowering technique was utilized adhering to the principles of ALARA. FINDINGS: Brain parenchyma: There are age-related involutional changes noting moderate subcortical and periventricular microangiopathic change. Left temporal lobe encephalomalacia is unchanged from previous. There is no hemorrhage, mass effect, or evidence of acute territorial ischemia by CT criteria. Cueto-white matter differentiation is preserved. No extra-axial fluid collection is seen. Ventricles, sulci, cisterns: Prominent secondary to involutional change. Intracranial vasculature: There is mild atherosclerotic calcification of the cavernous carotid and vertebral arteries. Calvarium: The skeletal structures are osteopenic. No depressed calvarial fracture is seen. There is postoperative change from left frontotemporal craniotomy/craniectomy. Sinuses and mastoids: The visualized paranasal sinuses are clear. The mastoid air cells are well pneumatized. Orbits: The bony orbits are grossly intact. There are bilateral ocular lens implants. IMPRESSION: Chronic and postoperative changes as above with no hemorrhage, mass effect, or evidence of acute territorial ischemia by CT criteria. Electronically signed by: Sonu Mcfadden M.D. 10/31/2018 11:32 AM Dictated: 10/31/18 1129 Transcribed: 10/31/181128 ECG Data Attestation: I personally reviewed and interpreted this ECG as follows: Indication: weakness Rate (beats per minute): 82 Rhythm: normal sinus Findings: + other (normal intervals, normal axis, no STS changes) and + left axis deviation; no T-wave inversion Blood Pressure Blood Pressure Findings: Elevated blood pressure Blood Pressure Disposition: further management by hospitalist MDM Narrative The HPI is limited secondary to patient weakness. The patient is an 88 white female w/ PMHx falls and DVT prophylaxis who presents to the ED via EMS w/ CC of worsening illness beginning today. Patient was seen and evaluated the bedside. The patient reportedly was coming today with concern for falls as well as possible issues with bowel movements. Patient currently denies any active pain or discomfort. The patient did have blood work completed. The patient did have a fairly high white count. Patient subsequently did have a CT of the chest and abdomen pelvis completed as there was concern for possible cavitary lesion and given her age and the white count wanted to rule out possible infectious or malignant etiology within the abdomen. Was shown that the patient does have a possible right upper lobe infection as well as a cavitary lesion in the left upper lobe which may be from a recent infective process. Patient does have a likely renal and bladder mass. The patient's white count is fairly high with an elevated PMN. Unsure as to whether or not this is reactive from infection or if this is secondary to possible malignancy. Patient was covered with broad-spectrum antibiotics given the possible infectious pneumonia and elevated white count. The patient was given IV fluids due to her dry mucous membranes and dehydrated appearance. Patient was admitted to the medicine service. Of note the patient did have a noted L2 compression fracture which was noted to have a prior visit. I also did try to contact the patient's daughter he did not brain picker at that time. Impression & Plan PNA (pneumonia), Renal mass, Bladder mass, Weakness, Dehydration Discharge Plan Visit Data *Final* Discharge Date/Time: 06/25/19 14:01 Chief Complaint: Illness Stated Complaint: Fall. Possible dehydration ED Provider: Thomas Duran Discharge Problem: PNA (pneumonia), Renal mass, Bladder mass, Weakness, Dehydration Patient Disposition: Admitted As Inpatient Discharge Instructions Interventions: ED Discharge Assessment Last Done: 10/31/18 14:01 Discharge Problem: PNA (pneumonia) Qualifiers: Pneumonia type: due to unspecified organism Laterality: unspecified laterality Lung location: unspecified part of lung Qualified Code(s): J18.9 - Pneumonia, unspecified organism The scribe's documentation has been prepared under my direction and personally reviewed by me in its entirety. I confirm that the note above accurately reflects all work, treatment, procedures, and medical decision making performed by me.
[2018-10-31] MEDS: PIPERACILLIN/TAZOBACTAM 3.375 GM in DEXTROSE 5% 100 ML IV SCH (21:03)
[2018-11-01] MEDS: SODIUM CHLORIDE 0.9% 1000ML 1,000 ML IV SCH ×2 (06:17→18:16)
[2018-11-01 07:07] LABS: Mean Corpuscular Volume 84.8 fL (80-100); Platelet Count 334 K/uL (130-400); RDW Coefficient of Variation 15.8 % (11.5-14.5); RDW Standard Deviation 48.7 fL (36.4-46.3); Red Blood Count 3.42 M/uL (4.2-5.4); White Blood Count 26.74 K/uL (4.8-10.8)
[2018-11-01 07:30] LABS: Basophils # (auto) 0.02 K/uL (0-0.2); Basophils % (auto) 0.1 %; Echinocytes 2+; Eosinophils # (auto) 0.06 K/uL (0-0.5); Eosinophils % (auto) 0.2 %; Immature Granulocytes # (auto) 0.18 K/uL (0.00-0.02); Immature Granulocytes % (auto) 0.7 %; Lymphocytes # (auto) 2.23 K/uL (1.2-3.4); Lymphocytes % (auto) 8.3 %; Monocytes # (auto) 1.42 K/uL (0.11-0.59); Monocytes % (auto) 5.3 %; Neutrophils # (auto) 22.83 K/uL (1.4-6.5); Neutrophils % (auto) 85.4 %
[2018-11-01 07:40] LABS: BUN Creatinine Ratio 13.3 (10-20); Calcium 8.3 mg/dl (8.5-10.1); Creatinine Clr Calc Pharmacy 21.2 ml/min; Est GFR (African American) 36.8; Est GFR (Non-African American) 31.8; Magnesium 2.1 mg/dl (1.8-2.4); Potassium 3.7 mmol/L (3.5-5.1)
[2018-11-01] MEDS: CALCIUM 600MG + VIT D 400 IU TAB PO SCH (08:06)
[2018-11-01] MEDS ORDERED: VANCOMYCIN HCL 500 MG in SODIUM CHLORIDE 0.9% 250 ML IV SCH (09:00)
[2018-11-01] MEDS: PIPERACILLIN/TAZOBACTAM 3.375 GM in DEXTROSE 5% 100 ML IV SCH ×2 (10:12→21:38)
--- NOTE | 2018-11-01 14:21 | Hospitalist Progress Note ---
Date of Service November 01, 2018 Assessment & Plan (1) PNA (pneumonia): RUL pneumonia seen on chest CT on 10/31. Mucous plugging in the RML and RLL also noted on CT. - Vanco/zosyn given in the ED; however, will stop vanc given her negative MRSA swab - Monitor breathing (2) LC (acute kidney injury): Possible LC (though no known baseline). - Cr was 1.75 on admission; down to 1.5 after IV fluids in the ED - Monitor Cr (3) Anemia: Hgb was 9.0 on admission; down from 9.6 at SNF last week. Uncertain if this is lab difference or bleeding or related to onc status. No signs of bruising or bleeding. - Hemoccult pending - Monitor hgb - Will get anemia labs tomorrow morning (4) Falls frequently: Dx with UTI as outpt, cx reports as Lactobacillus. - No abx listed on med rec - PT/OT (5) Lung mass: It is unclear if this is a prior known issue or what further care pt/family wish to pursue. Does not appear to have been active with heme/onc. - After discussion with daughter, it is clear she does not want further treatment/investigation. 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 This is a known issue. - Daughter does not want to pursue treatment. (7) Bladder mass: See above note for other possible cancerous areas. (8) Compression fracture: Listed on dx from [facility]. Denies current pain. - Monitor (9) DVT prophylaxis: SCDs - Given preference for comfort measures; will not give subcut medications. Subjective Reports no pain or shortness of breath this morning. No major complaints. Review of Systems Review of Systems: All systems reviewed & are unremarkable except as noted in HPI & below Physical Exam Constitutional: WD/WN, vitals as above Eyes: + anicteric sclerae Neck: normal visual inspection and trachea midline Respiratory: normal respiratory effort, lungs clear to auscultation Cardiovascular: Rate/Rhythm: regular rate and regular rhythm Gastrointestinal (Abdomen): Inspection/Auscultation: abdomen not distended Percussion/Palpation: abdomen soft; abdomen nontender Musculoskeletal: Head/Neck/Chest: normocephalic and head atraumatic Skin: no rashes, warm and dry Neurologic: awake and + confused Speech / Cognition: normal speech Psychiatric: Orientation: oriented to person and cooperative; + not oriented to place and + not oriented to time Apperance: not disheveled Eye Contact: good eye contact Affect: + anxious affect Results & Data Vital Signs (Past 12 Hours) Vital Signs Temp Pulse Resp BP Pulse Ox 11/01/18 11:31 37.1 C 67 16 123/63 100 11/01/18 07:02 36.5 C 65 18 138/63 90 11/01/18 04:17 36.4 C L 77 20 134/64 100 PG Care Time/CCT Total # of Minutes Spent Total Time Spent with Patient: Total time spent is greater than 50% in coordination of care (as documented) at patient's floor/unit and/or counseling patient: (1) PNA (pneumonia) Laterality: unspecified laterality Lung location: unspecified part of lung Pneumonia type: due to unspecified organism Qualified Code(s): J18.9 - Pneumonia, unspecified organism
[2018-11-01] MEDS ORDERED: ANUSOL SUPP 1 EA PR PRN (18:05)
[2018-11-01] MEDS: LOPERAMIDE HCL 2 MG CAP PO PRN (18:49)
[2018-11-01] MEDS: MoRPHine SULFATE 2 MG/ML CARP IV PRN (18:49)
[2018-11-02 07:10] LABS: Hematocrit (blood only) 29.8 % (37-47); Hemoglobin 9.2 g/dL (12.0-16.0); Mean Corpuscular Hgb Conc 30.9 g/dL (32-36); Mean Corpuscular Volume 84.7 fL (80-100); Mean Platelet Volume 9.3 fL (7.4-10.4); Platelet Count 359 K/uL (130-400); RDW Coefficient of Variation 16.1 % (11.5-14.5); RDW Standard Deviation 49.1 fL (36.4-46.3); Red Blood Count 3.52 M/uL (4.2-5.4); White Blood Count 28.43 K/uL (4.8-10.8)
[2018-11-02 08:23] LABS: Est GFR (African American) 39.1; Est GFR (Non-African American) 33.7
[2018-11-02] MEDS: CALCIUM 600MG + VIT D 400 IU TAB PO SCH (08:54)
[2018-11-02] MEDS: PIPERACILLIN/TAZOBACTAM 3.375 GM in DEXTROSE 5% 100 ML IV SCH ×2 (09:56→16:12)
[2018-11-02] MEDS: MoRPHine SULFATE 2 MG/ML CARP IV PRN (11:11)
--- NOTE | 2018-11-02 11:15 | Palliative Care Consultation ---
Date of Consultation November 02, 2018 Assessment & Plan (1) Goals of care, counseling/discussion: -88 year old female patient with PMH dementia, renal mass thought to be transitional cell carcinoma but patient/family declined further workup/treatment, lung mass declining further workup/treatment, osteopenia, who presented to the hospital two days ago after a fall at [facility] where she resides. Upon arrival, she was found to have a small LC, possibly 2/2 dehydration, with creatinine 1.75. A CT scan of the chest also showed pneumonia and mucus plugging of the right lung. She was started on multiple abx, vanco has been discontinued since her MRSA swab was negative. Admi tting physician did get a hold of the patient's daughter/POA, Maty Castaneda, who was able to give more of a history. Patient has been residing at [facility] since December 2017 and per the daughter, has been slowly declining-- not eating or drinking as much, worsening cognitive status, UTIs, losing weight. On 10/10, patient had a fall and came to the ED where she was found to have a lumbar compression fracture. Patient was not admitted and was sent back to [facility]. She has been more steadily declining since then-- forgetting to eat/drink, not answering her phone, having difficulty walking to meal times, etc. Maty stated patient was also experiencing terrible diarrhea at [facility]. On Tuesday, patient was found lying on the floor in feces. The next day, they decided to send her to the hospital. It was also discussed with patient's daughter that there was an incidental finding of a bladder mass, but with the overarching goal of comfort, her daughter Maty declines further workup for this. Patient was admitted for supportive and symptomatic treatment. Palliative care consulted to discuss goals of care. -Met with patient and her daughter/POA Maty Castaneda in room 276-1. Patient awake and alert, but confused. Could not tell me where she was and did not know what happened to her. She does experience pain when getting out of bed, which I witnessed and she got into the chair. She also c/o pain in her perineal area from all the diarrhea. -Maty and I stepped out of room to discuss GOC. She states that the goal is strictly for comfort. At baseline prior ot patient's fall on 10/10, she was still quite physically functional, but no short term memory. However, which patient's recent decline, she now needs help with all ADLs. -Maty wants patient to avoid any/all hospitalizations in the future. She does want patient to undergo rehab stay at [facility] to see if she has any room for improvement. Whether the patient improves or declines, she still wants to focus on comfort care. -Discussed and completed a POLST form as follows: DNR, comfort measures only, abx with comfort as the goal, trial of IVF but no feeding tube. Goal is to transition to hospice care as soon as appropriate after rehab stay and to avoid hospitalizations. -Switched IV morphine to Roxanol 5mg PO/SL q6h PRN pain or SOB. Family counseled on the secondary side effects of morphine such as sedation and respiratory depression. -Current FAST score is 6c. Current PPS is 40%. (2) Dehydration: (3) LC (acute kidney injury): (4) Dementia: Supervising Physician Co-Signing Physician Notes Chart reviewed, patient seen and examined, patient's daughter, Maty, at bedside. Collaborated with SARAH Jacobsen PE: Patient initially no acute distress, does have discomfort related to diarrhea and hemorrhoids HEENT: EOMI, mild CHITIMACHA Respiratory: Unlabored, clear breath sounds CV: Regular rate, no edema Abdomen: Soft, nontender, not distended Extremities: Thin, cachectic Neuro: Positive cognitive deficits, poor memory, was able to give her daughter's name, oriented to self Psych: No behavioral issues Agree with above note, assessment and plan as per SARAH Jacobsen. Will continue to follow and assist family with medical decision making. POLST form completed History of Present Illness Attending Physician: Suleiman Underwood MD History of Present Illness This 88 year old female patient with PMH dementia, renal mass thought to be transitional cell carcinoma but patient/family declined further workup/treatment, lung mass declining further workup/treatment, osteopenia, who presented to the hospital two days ago after a fall at [facility] where she resides. Upon arrival, she was found to have a small LC, possibly 2/2 dehydration, with creatinine 1.75. A CT scan of the chest also showed pneumonia and mucus plugging of the right lung. She was started on multiple abx, vanco has been discontinued since her MRSA swab was negative. Admitting physician did get a hold of the patient's daughter/POA, Maty Castaneda, who was able to give more of a history. Patient has been residing at [facility] since December 2017 and per the daughter, has been slowly declining-- not eating or drinking as much, worsening cognitive status, UTIs, losing weight. On 10/10, patient had a fall and came to the ED where she was found to have a lumbar compression fracture. Patient was not admitted and was sent back to [facility]. She has been more steadily declining since then-- forgetting to eat/drink, not answering her phone, having difficulty walking to meal times, etc. Maty stated patient was also experiencing terrible diarrhea at . On Tuesday, patient was found lying on the floor in feces. The next day, they decided to send her to the hospital. It was also discussed with patient's daughter that there was an incidental finding of a bladder mass, but with the overarching goal of comfort, her daughter Maty declines further workup for this. Patient was admitted for supportive and symptomatic treatment. Palliative care consulted to discuss goals of care. Thank you kindly for this consult. I will follow as needed. Allergies Allergy/AdvReac Type Severity Reaction Status Date / Time No Known Allergies Allergy Unknown Verified 10/31/18 11:42 Home Medications Home Medications Medication Instructions Recorded Confirmed Type calcium carbonate-vitamin D3 1 tab PO DAILY 10/10/18 10/31/18 History [Oyster Shell Calcium-Vit D3] lidocaine [Lidoderm] 1 patch TOP DAILY PRN #1 ea 10/10/18 10/31/18 Rx acetaminophen [Tylenol] 325 mg PO Q4H PRN 10/31/18 10/31/18 History tramadol 50 mg PO Q6H PRN 10/31/18 10/31/18 History Patient History Medical History Falls frequently Unknown family medical history Surgical History No pertinent past surgical history Family History Other Unknown family medical history Social History Preferred Language: Arabic Communication Ability: Unable Beliefs That Will Affect Care: None Current Living Situation: Shelter Current Living Situation Comment: [place] Feels Safe at Home: Yes Smoking Status: Unknown if ever smoked Review of Systems Review of Systems: C/O perineal and buttocks pain. Denies SOB, N/V, or other discomforts. Physical Exam Constitutional: + frail appearing Neck: normal visual inspection and trachea midline Respiratory: normal respiratory effort, lungs clear to auscultation Cardiovascular: Rate/Rhythm: regular rate and regular rhythm Gastrointestinal (Abdomen): Inspection/Auscultation: abdomen not distended Percussion/Palpation: abdomen soft; abdomen nontender Skin: no rashes, warm and dry Neurologic: awake and + confused Psychiatric: Orientation: oriented to person Affect: + anxious affect Results & Data Vital Signs (Past 12 Hours) Vital Signs Temp Pulse Pulse Resp BP BP Pulse Ox 11/02/18 07:14 36.7 C 76 20 129/63 98 11/02/18 04:58 37.1 C 78 20 149/70 H 99 11/01/18 23:50 80 11/01/18 23:39 37.2 C 77 20 145/78 H 93 PG Care Time/CCT Prolonged Care Time Prolonged Care Time: Yes Total Prolonged Care Time: 30 100 Time Spent Midlevel 100 minutes with >50% of time spent at bedside with patient and family discussing condition and GOC.
--- NOTE | 2018-11-02 12:46 | Hospitalist Progress Note ---
Date of Service November 02, 2018 Assessment & Plan (1) Abdominal pain: Patient reports RUQ abdominal pain, though no tenderness on palpation. CT a/p on 10/31 did not show any acute issues, but did show multiple cancerous lesions, including on the right kidney. - Pain management (2) PNA (pneumonia): RUL pneumonia seen on chest CT on 10/31. Mucous plugging in the RML and RLL also noted on CT. - Vanco/zosyn given in the ED; however, will stop vanc given her negative MRSA swab - Monitor breathing - Breathing well on room air. Looking fairly comfortable from a respiratory standpoint. (3) LC (acute kidney injury): Possible LC (though no known baseline). - Cr was 1.75 on admission; down to 1.5 after IV fluids in the ED - Monitor Cr - Down to 1.4 on 11/02 (4) Anemia: Hgb was 9.0 on admission; down from 9.6 at SNF last week. Uncertain if this is lab difference or bleeding or related to onc status. No signs of bruising or bleeding. - Monitored hemoglobin - Holding now for comfort care transition. (5) Falls frequently: Dx with UTI as outpt, cx reports as Lactobacillus. - No abx listed on med rec - PT/OT (6) Lung mass: It is unclear if this is a prior known issue or what further care pt/family wish to pursue. Does not appear to have been active with heme/onc. - After discussion with daughter, it is clear she does not want further treatment/investigation. 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 This is a known issue. - Daughter does not want to pursue treatment. (8) Bladder mass: See above note for other possible cancerous areas. (9) Compression fracture: Listed on dx from [facility]. Denies current pain. - Monitor (10) DVT prophylaxis: SCDs - Given preference for comfort measures; will not give subcut medications. Subjective In more pain this morning. Review of Systems Review of Systems: Unobtainable due to cognitive status Physical Exam Constitutional: WD/WN, vitals as above + acute distress Eyes: + anicteric sclerae Neck: normal visual inspection and trachea midline Respiratory: normal respiratory effort, lungs clear to auscultation Cardiovascular: Rate/Rhythm: regular rate and regular rhythm Gastrointestinal (Abdomen): Inspection/Auscultation: abdomen not distended Percussion/Palpation: abdomen soft; abdomen nontender Musculoskeletal: Head/Neck/Chest: normocephalic and head atraumatic Skin: no rashes, warm and dry Neurologic: awake and + confused Speech / Cognition: normal speech Psychiatric: Orientation: oriented to person and cooperative; + not oriented to place and + not oriented to time Apperance: not disheveled Eye Contact: good eye contact Affect: + anxious affect Results & Data Vital Signs (Past 12 Hours) Vital Signs Temp Pulse Resp BP Pulse Ox 11/02/18 11:26 36.8 C 91 H 18 141/45 H 96 11/02/18 07:14 36.7 C 76 20 129/63 98 11/02/18 04:58 37.1 C 78 20 149/70 H 99 PG Care Time/CCT Total # of Minutes Spent Total Time Spent with Patient: Total time spent is greater than 50% in coordination of care (as documented) at patient's floor/unit and/or counseling patient: (1) PNA (pneumonia) Laterality: unspecified laterality Lung location: unspecified part of lung Pneumonia type: due to unspecified organism Qualified Code(s): J18.9 - Pneumonia, unspecified organism
[2018-11-02] MEDS: MoRPHine SULFATE 5 MG/0.25 ML UDP PO PRN (16:12)
[2018-11-02] MEDS: LOPERAMIDE HCL 2 MG CAP PO PRN (16:13)
[2018-11-03] MEDS: PIPERACILLIN/TAZOBACTAM 3.375 GM in DEXTROSE 5% 100 ML IV SCH ×3 (02:25→18:27)
[2018-11-03 07:39] LABS: Creatinine Clr Calc Pharmacy 20.4 ml/min; Est GFR (African American) 33.7; Est GFR (Non-African American) 29.1
[2018-11-03] MEDS: CALCIUM 600MG + VIT D 400 IU TAB PO SCH (08:03)
--- NOTE | 2018-11-03 11:02 | Palliative Care Progress Note ---
Date of Service November 03, 2018 Assessment & Plan (1) Goals of care, counseling/discussion: -Patient doing okay today. No new complaints. Still has pain in her bottom from the diarrhea and skin breakdown. Zofia Rutledge is at bedside. -Hospitalist will likely transition patient to PO abx from IV. Anticipated discharge in next couple days. -Patient is to undergo rehab stay at [facility] to see if she has any room for improvement. Whether the patient improves or declines, she still wants to focus on comfort care. If patient improves enough to go back to [facility], that is fine, but if not she will transition to skilled care. Case management is following. -POLST form completed on 11/02 as follows: DNR, comfort measures only, abx with comfort as the goal, trial of IVF but no feeding tube. Goal is to transition to hospice care as soon as appropriate after rehab stay and to avoid hospit alizations. -Roxanol 5mg PO/SL q6h PRN pain or SOB. Zofia Rutledge states it works well. -Current FAST score is 6c. Current PPS is 40%. (2) Dehydration: (3) LC (acute kidney injury): (4) Dementia: Subjective Patient sitting in chair. No distress but states she is uncomfortable. Zofia Rutledge states the Roxanol is working well. Review of Systems Review of Systems: c/o pain in buttocks and perineal area, but could not give number. Denies any other complaints. Physical Exam Constitutional: + frail appearing Neck: normal visual inspection and trachea midline Respiratory: normal respiratory effort, lungs clear to auscultation Cardiovascular: Rate/Rhythm: regular rate and regular rhythm Gastrointestinal (Abdomen): Inspection/Auscultation: abdomen not distended Percussion/Palpation: abdomen soft; abdomen nontender Skin: no rashes, warm and dry Neurologic: awake and + confused Psychiatric: Orientation: oriented to person Results & Data Vital Signs (Past 12 Hours) Vital Signs Temp Pulse Pulse Resp BP Pulse Ox 11/03/18 07:16 36.6 C 72 18 123/69 99 11/03/18 04:00 36.7 C 82 18 116/71 99 11/02/18 23:35 88 11/02/18 23:18 36.8 C 93 H 16 127/74 99 PG Care Time/CCT Total # of Minutes Spent Total Time Spent with Patient: Total time spent is greater than 50% in coordination of care (as documented) at patient's floor/unit and/or counseling patient: Time Spent Midlevel [35] minutes with >50% of the time spent at bedside with [patient and family] discussing [condition and GOC].
[2018-11-03] MEDS: MoRPHine SULFATE 5 MG/0.25 ML UDP PO PRN ×2 (11:26→17:39)
--- NOTE | 2018-11-03 13:04 | Hospitalist Progress Note ---
Date of Service November 03, 2018 Assessment & Plan (1) Abdominal pain: Patient reports RUQ abdominal pain, though no tenderness on palpation. CT a/p on 10/31 did not show any acute issues, but did show multiple cancerous lesions, including on the right kidney. - Pain management - By 11/03, she was feeling more comfortable with the opiate pain medications. (2) PNA (pneumonia): RUL pneumonia seen on chest CT on 10/31. Mucous plugging in the RML and RLL also noted on CT. - Vanco/zosyn given in the ED; however, will stop vanc given her negative MRSA swab - Monitor breathing - Breathing well on room air. Looking fairly comfortable from a respiratory standpoint. - Will switch to PO abx today - Augmentin to finish the course. (3) LC (acute kidney injury): Possible LC (though no known baseline). - Cr was 1.75 on admission; down to 1.5 after IV fluids in the ED - Monitor Cr - Down to 1.4 on 11/02 - Stopped checking after 11/02 due to comfort status (4) Anemia: Hgb was 9.0 on admission; down from 9.6 at SNF last week. Uncertain if this is lab difference or bleeding or related to onc status. No signs of bruising or bleeding. - Monitored hemoglobin - Holding now for comfort care transition. (5) Falls frequently: Dx with UTI as outpt, cx reports as Lactobacillus. - No abx listed on med rec - PT/OT (6) Lung mass: It is unclear if this is a prior known issue or what further care pt/family wish to pursue. Does not appear to have been active with heme/onc. - After discussion with daughter, it is clear she does not want further treatment/investigation. 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 This is a known issue. - Daughter does not want to pursue treatment. (8) Bladder mass: See above note for other possible cancerous areas. (9) Compression fracture: Listed on dx from [facility]. Denies current pain. - Monitor (10) DVT prophylaxis: SCDs - Given preference for comfort measures; will not give subcut medications. Subjective Feeling more comfortable for me this morning, though daughter felt that her sacral area was painful. Review of Systems Review of Systems: Unobtainable due to mental health condition and Unobtainable due to cognitive status Physical Exam Constitutional: WD/WN, vitals as above no acute distress Eyes: + anicteric sclerae Neck: normal visual inspection and trachea midline Respiratory: normal respiratory effort, lungs clear to auscultation Cardiovascular: Rate/Rhythm: regular rate and regular rhythm Gastrointestinal (Abdomen): Inspection/Auscultation: abdomen not distended Percussion/Palpation: abdomen soft; abdomen nontender Musculoskeletal: Head/Neck/Chest: normocephalic and head atraumatic Skin: no rashes, warm and dry Neurologic: awake and + confused Speech / Cognition: normal speech Psychiatric: Orientation: oriented to person and cooperative; + not oriented to place and + not oriented to time Apperance: not disheveled Eye Contact: good eye contact Affect: no anxious affect Results & Data Vital Signs (Past 12 Hours) Vital Signs Temp Pulse Resp BP Pulse Ox 11/03/18 11:14 36.4 C L 82 18 121/67 98 11/03/18 07:16 36.6 C 72 18 123/69 99 11/03/18 04:00 36.7 C 82 18 116/71 99 PG Care Time/CCT Total # of Minutes Spent Total Time Spent with Patient: Total time spent is greater than 50% in coordination of care (as documented) at patient's floor/unit and/or counseling patient: (1) PNA (pneumonia) Laterality: unspecified laterality Lung location: unspecified part of lung Pneumonia type: due to unspecified organism Qualified Code(s): J18.9 - Pneumonia, unspecified organism
[2018-11-04] MEDS: PIPERACILLIN/TAZOBACTAM 3.375 GM in DEXTROSE 5% 100 ML IV SCH ×2 (02:00→09:06)
[2018-11-04] MEDS: MoRPHine SULFATE 5 MG/0.25 ML UDP PO PRN (09:50)
--- NOTE | 2018-11-04 13:55 | Discharge Summary ---
Date of Service November 04, 2018 Admission HPI Per Admitting Provider 88 y/o F who was sent to the ED from [facility] for several recent falls and increased stools per the ED physician. Pt cannot tell me any hx of her recent health. When asked why she was brought here, she responds that she does not know. Pt denies fever, SOB, chest pain, abd pain, n/v/c/d, LE pain or swelling. She is uncertain if she ate or took any medications today. A call from the ED physician to pt's daughter was not answered and has not yet been returned. Principal Diagnosis Possible pneumonia Discharge Exam Constitutional WD/WN, vitals as above no acute distress Eyes + anicteric sclerae Neck normal visual inspection and trachea midline Respiratory normal respiratory effort, lungs clear to auscultation Cardiovascular Rate/Rhythm: regular rate and regular rhythm Gastrointestinal (Abdomen) Inspection/Auscultation: abdomen not distended Percussion/Palpation: abdomen soft; abdomen nontender Musculoskeletal Head/Neck/Chest: normocephalic and head atraumatic Skin no rashes, warm and dry Neurologic awake and + confused Speech / Cognition: normal speech Psychiatric Orientation: oriented to person and cooperative; + not oriented to place and + not oriented to time Apperance: not disheveled Eye Contact: good eye contact Affect: no anxious affect Discharge Data Allergies Allergy/AdvReac Type Severity Reaction Status Date / Time No Known Allergies Allergy Unknown Verified 10/31/18 11:42 Consultations 10/31/18 12:46 ED Decision to Admit Stat 10/31/18 14:46 Consult Case Management - Discharge Planning Routine 11/01/18 18:05 Consult Palliative Care Routine Ordered Studies 10/31/18 10:50 CT head/brain wo con Stat 10/31/18 11:25 CT abd pelvis wo con Stat CT chest wo con Stat Hospital Course (1) Abdominal pain: Patient reports RUQ abdominal pain, though no tenderness on palpation. CT a/p on 10/31 did not show any acute issues, but did show multiple cancerous lesions, including a 10cm tumor on the right kidney. - Pain management - By 11/03, she was feeling more comfortable with the opiate pain medications. (2) PNA (pneumonia): RUL pneumonia seen on chest CT on 10/31. Mucous plugging in the RML and RLL also noted on CT. - Vanco/zosyn given in the ED; however, stopped vanc given her negative MRSA swab - Monitor breathing - Breathing well on room air. Looking fairly comfortable from a respiratory standpoint. - Switched to PO abx today - Augmentin to finish the course. (3) LC (acute kidney injury): Possible LC (though no known baseline). - Cr was 1.75 on admission; down to 1.5 after IV fluids in the ED - Monitor Cr - Down to 1.4 on 11/02 - Stopped checking after 11/02 due to comfort status (4) Anemia: Hgb was 9.0 on admission; down from 9.6 at SNF last week. Uncertain if this is lab difference or bleeding or related to onc status. No signs of bruising or bleeding. - Monitored hemoglobin - Holding now for comfort care transition. (5) Falls frequently: Dx with UTI as outpt, cx reports as Lactobacillus. - PT/OT (6) Lung mass: It is unclear if this is a prior known issue or what further care pt/family wish to pursue. Does not appear to have been active with heme/onc. - After discussion with daughter, it is clear she does not want further treatment/investigation. 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 This is a known issue. - Daughter does not want to pursue treatment. (8) Bladder mass: See above note for other possible cancerous areas. (9) Compression fracture: Listed on dx from [facility]. Denies current pain. - Monitor (10) DVT prophylaxis: SCDs - Given preference for comfort measures; will not give subcut medications. Total Time Total Time Spent Total Time Spent (In Minutes): 35 Total Time Includes: Examination of the Patient Discharge Plan Discharge Items Patient Disposition: Transfer [facility] Reason For Visit: POSSIBLE PNEUMONITIS Discharge Diagnosis: Possible pneumonia Discharge Goals: Decrease discomfort Activity: Resume your previous activity Non-emergency contact: Primary Care Provider Call non-emergency contact if: your pain is not controlled Follow-up/Referrals: Reginaldo Romero MD [Primary Care Provider] - Diet: Regular Addtl Provider Instructions: Please use the morphine generously. Please pre-treat prior to bathing, walking, moving, etc. She is comfort care, and family very much wants her to be comfortable above all else. She only needs the Augmentin for 2 more days, and even this could be stopped by the provider if desired as she is now comfort care and really not having any shortness of breath. Prescriptions: New loperamide 2 mg Capsule 2 mg PO Q6H PRN (Reason: loose stool) Qty: 1 RF: 0 ondansetron HCl (PF) 4 mg/2 mL Solution 4 mg IV Q6H PRN (Reason: nausea and vomiting) Qty: 2 RF: 0 Caren-Med 0.25 % Suppository 1 supp OK Q4H PRN (Reason: hemorrhoids) Qty: 12 RF: 0 Augmentin 125-31.25 mg/5 mL suspension for reconstitution 10 ml PO Q12H Qty: 75 RF: 0 morphine concentrate 100 mg/5 mL (20 mg/mL) solution 5 mg PO Q4H PRN (Reason: pain) Qty: 15 RF: 0 Continued acetaminophen [Tylenol] 325 mg Tablet 325 mg PO Q4H PRN (Reason: Pain) RF: 0 lidocaine [Lidoderm] 5 % adhesive patch,medicated 1 patch TOP DAILY PRN (Reason: pain) Qty: 1 RF: 0 Discontinued tramadol 50 mg tablet 50 mg PO Q6H PRN (Reason: Pain) RF: 0 calcium carbonate-vitamin D3 [Oyster Shell Calcium-Vit D3] 500 mg(1,250mg) - 200 unit Tablet 1 tab PO DAILY RF: 0 Stand-Alone Forms: [facility] Discharge Orders: Discharge Order (Routine); Ordered 11/04/18 Ordered By: Suleiman Underwood Admission Data Admit Date/Time: 10/31/18 13:09 Attending Provider: Suleiman Underwood Admit Provider: Gabrielle Meng Primary Care Provider: Reginaldo Romero Other Providers: Suleiman Underwood ; IRB Approved Study,Moncho ; Gabrielle Meng ; Vandana Rivera Service: Medical Other Interventions: Discharge Summary Assessment (RN) Last Done: 11/04/18 10:11 DC Date/Time DO NOT enter until pt leaves facility: 11/04/18 13:04
== END 2018-11-04 13:04 | DRG 194 ==
LOC: ED 10:22 → SUATTDRO 13:09 → 2N 13:09